=== PATIENT | female | born 2000 | race Caucasian/White ===

== ENCOUNTER 2019-03-22 20:20 | Emergency (ER) | payer SELFPAY ==
[~2019-03-22] VITALS: Ht 149.9 cm; Wt 78.0 kg
[2019-03-22 20:55] VITALS: Ht 149.9 cm; Wt 78.0 kg
[2019-03-22] MEDS ORDERED: SOD CHLORIDE 0.9% 1,000 ML IV STA (23:49)
[2019-03-22] MEDS ORDERED: ONDANSETRON 4 MG INJ IV STA (23:49)
[2019-03-22] MEDS ORDERED: morphine 2 MG INJ IV STA (23:49)
[2019-03-23] MEDS ORDERED: ACET500C5 PO (01:57)
[2019-03-23] MEDS ORDERED: ONDA8TAB14 PO (01:58)
--- NOTE | 2019-03-23 02:00 | ERD ---
ER Documentation Chief Complaint Chief Complaint C/O RLQ PAIN W/ AND VOMITING X3DAYS HPI 18-year-old female presents with right lower quadrant pain and vomiting for the last 2 days. Vomit is nonbilious nonbloody. She has had tactile fevers but no measured temperature. She was referred by primary doctor for evaluation of appendicitis. Last menstrual period was approximate 1 month ago but she is irregular. Denies . Denies vaginal discharge, dysuria, bleeding. ROS All systems reviewed and are negative except as per history of present illness. Medications Home Meds Active Scripts Ondansetron (Ondansetron Odt) 8 Mg Tab.rapdis, 8 MG PO Q6H PRN for NAUSEA AND/OR VOMITING, #8 TAB Prov:KAMLA CHAMBERS MD 03/23/19 Acetaminophen* (Tylophen*) 500 Mg Capsule, 1 CAP PO Q6H PRN for PAIN AND OR ELEVATED TEMP, #20 CAP Prov:KAMLA CHAMBERS MD 03/23/19 Allergies Allergies: Coded Allergies: ibuprofen (Verified Allergy, Unknown, 03/22/19) PMhx/Soc Medical and Surgical Hx: pt denies Medical Hx, pt denies Surgical Hx Hx Alcohol Use: No Hx Substance Use: No Hx Tobacco Use: No Smoking Status: Never smoker FmHx Family History: No diabetes, No coronary disease, No other Physical Exam Vitals Vital Signs Date Temp Pulse Resp B/P (MAP) Pulse Ox O2 O2 Flow FiO2 Time Delivery Rate 03/23/19 97.9 67 18 122/66 98 05:06 (84) 03/22/19 98.7 81 22 111/59 98 20:55 (76) Physical Exam Const: No acute distress Head: Atraumatic Eyes: Normal Conjunctiva ENT: Normal External Ears, Nose and Mouth. Neck: Full range of motion. No meningismus. Resp: Clear to auscultation bilaterally Cardio: Regular rate and rhythm, no murmurs Abd: Soft, minimal tenderness in right lower abdomen without focal rebound and no Cline sign. No masses. No peritoneal signs., non distended. Normal b owel sounds Skin: No petechiae or rashes Back: No midline or flank tenderness Ext: No cyanosis, or edema Neur: Awake and alert Psych: Normal Mood and Affect Result Diagram: 7/2/19 0102 7/2/19 0102 Results 24 hrs Laboratory Tests Test 03/22/19 00:45 03/23/19 00:54 03/23/19 01:02 Urine Color YELLOW Urine Clarity CLOUDY Urine pH 5.0 Urine Specific [place] 1.026 Urine Ketones NEGATIVE mg/dL Urine Nitrite NEGATIVE mg/dL Urine Bilirubin NEGATIVE mg/dL Urine Urobilinogen NEGATIVE mg/dL Urine Leukocyte Esterase NEGATIVE Kaur/ul Urine Microscopic RBC 2 /HPF Urine Microscopic WBC 4 /HPF Urine Squamous Epithelial Cells MODERATE /HPF Urine Bacteria FEW /HPF Urine Mucus FEW /HPF Urine Hemoglobin NEGATIVE mg/dL Urine Glucose NEGATIVE mg/dL Urine Total Protein NEGATIVE mg/dl POC Beta HCG, Qualitative NEGATIVE White Blood Count 7.5 10^3/ul Red Blood Count 4.84 10^6/ul Hemoglobin 12.8 g/dl Hematocrit 40.0 % Mean Corpuscular Volume 82.6 fl Mean Corpuscular Hemoglobin 26.4 pg Mean Corpuscular 32.0 g/dl Hemoglobin Concent Red Cell Distribution Width 13.9 % Platelet Count 381 10^3/UL Mean Platelet Volume 10.8 fl Immature Granulocytes % 0.100 % Neutrophils % 40.6 % Lymphocytes % 48.8 % Monocytes % 6.1 % Eosinophils % 4.0 % Basophils % 0.4 % Nucleated Red Blood Cells % 0.0 /100WBC Immature Granulocytes # 0.010 10^3/ul Neutrophils # 3.0 10^3/ul Lymphocytes # 3.7 10^3/ul Monocytes # 0.5 10^3/ul Eosinophils # 0.3 10^3/ul Basophils # 0.0 10^3/ul Nucleated Red Blood Cells # 0.0 10^3/ul Sodium Level 144 mmol/L Potassium Level 4.1 mmol/L Chloride Level 106 mmol/L Carbon Dioxide Level 26 mmol/L Anion Gap 12 Blood Urea Nitrogen 12 mg/dl Creatinine 0.60 mg/dl Est Glomerular Filtrat > 60 mL/min Rate mL/min Glucose Level 112 mg/dl Calcium Level 9.7 mg/dl Total Bilirubin 0.4 mg/dl Direct Bilirubin 0.00 mg/dl Indirect Bilirubin 0.4 mg/dl Aspartate Amino Transf (AST/SGOT) 62 IU/L Alanine 101 IU/L Aminotransferase (ALT/SGPT) Alkaline Phosphatase 85 IU/L Total Protein 8.3 g/dl Albumin 4.8 g/dl Globulin 3.50 g/dl Albumin/Globulin Ratio 1.37 Lipase 98 U/L Current Medications Medications Dose Sig/Maryjane Start Time Status Last (Trade) Ordered Route PRN Stop Time Admin Dose Reason Admin Sodium 1,000 ml @ Q1H STAT 03/22/19 DC 03/23/19 Chloride 1,000 mls/hr IV 23:49 03/23/19 00:55 00:48 Morphine 2 mg ONCE STAT 03/22/19 DC 03/23/19 Sulfate IV 23:49 03/22/19 00:55 (morphine) 23:50 Ondansetron 4 mg ONCE STAT 03/22/19 DC 03/23/19 HCl (Zofran IV 23:49 03/22/19 00:55 Inj) 23:50 1 mg ONCE STAT 03/23/19 DC Hydromorphone IM 03:42 03/23/19 HCl 03:45 (Dilaudid) 1 mg ONCE STAT 03/23/19 DC 03/23/19 Hydromorphone IV 03:44 03/23/19 03:49 HCl 03:45 (Dilaudid) Procedures/MDM CBC and CMP and urine normal. hCG negative. CT abdomen pelvis shows right adnexal lesion consistent with a dermoid, ultrasound recommended. Ultrasound confirms likely cystic dermoid.. Patient presents with lower abdominal pain and vomiting of uncertain etiology. Patient had a benign abdomen and felt much better on serial exam after observation and treatment. She has no signs of torsion, appendicitis, obstruction, surgical abdomen currently. Final results of radiologic studies signed out to mid-level and supervising ER physician. Review of chart shows she does have a dermoid on the right adnexa which may be the cause of her symptoms. . She will be discharged home with close observation, Tylenol, Zofran, primary care follow-up and further evaluation and treatment of dermoid, and return precautions. She is advised to see a manager staffing and may need authorization from her primary doctor for gynecology. Advised to return for worsening pain, vomiting, fevers, new worsening symptoms. The patient was stable with no new complaints during the ER course. Clinically, there is no current evidence to suggest meningitis, sepsis, acute abdomen, pneum onia, stroke, acute coronary syndrome, pulmonary embolism, aortic dissection or any other emergent condition appearing to require further evaluation or hospitalization. Patient counseled regarding my diagnostic impression and care plan. Prior to discharge all questions answered. Pt agrees with treatment plan and understands strict return precautions. Pt is instructed to follow up with primary care provider within 24-48 hours. Precautionary instructions provided including instructions to return to the ER if not improving or for any worsening or changing symptoms or concerns. Disclaimer: Inadvertent spelling and grammatical errors are likely due to EHR/dictation software use and do not reflect on the overall quality of patient care. Also, please note that the electronic time recorded on this note does not necessarily reflect the actual time of the patient encounter. Departure Diagnosis: Primary Impression: Abdominal pain Abdominal location: right lower quadrant Qualified Codes: R10.31 - Right lower quadrant pain Additional Impression: Dermoid cyst Condition: Stable Patient Instructions: Abdominal Pain Referrals: NO PRIMARY,CARE PHYSICIAN (PCP) Additional Instructions: Examination shows no appendicitis today. Uncertain cause of pain. Recheck for fevers, vomiting, new worsening symptoms with primary care doctor. KAMLA CHAMBERS MD Mar 23, 2019 02:00
[2019-03-23] MEDS ORDERED: HYDROmorphONE 2 MG/ML SYG IM STA (03:42)
[2019-03-23] MEDS ORDERED: HYDROmorphONE 0.5 MG/0.5 ML SYG IV STA (03:44)
[2019-03-23 05:06] VITALS: BP 122/66; PULSE 67; RESP 18
== END 2019-03-23 05:07 | disposition home or self-care (01) ==
LOC: FTE 20:20
DX: C57.4 Malignant neoplasm of uterine adnexa, unspecified (principal); R11.10 Vomiting, unspecified
CPT/HCPCS: 36415; 74176; 76830; 76856; 80053; 81001; 81025; 83690; 85025; 96361; 96374; 96375; 99285; J1170; J2270; J2405; J7030

== ENCOUNTER 2019-04-02 12:13 | Emergency (ER) | payer SELFPAY ==
[~2019-04-02] VITALS: Ht 149.9 cm; Wt 77.1 kg
[~2019-04-02 12:13] MED LIST: ACET500C5 PO; ONDA8TAB14 PO
[2019-04-02 12:54] VITALS: Ht 149.9 cm; Wt 77.1 kg
--- NOTE | 2019-04-02 13:33 | ERD ---
ER Documentation Chief Complaint Chief Complaint Left axillary possible abscess x1week non-draining HPI Patient is a 18 years old female with no known past medical history presenting to the clinic for possible nondraining abscess of left axilla X 1 week. Patient reports that her symptoms started over the small little lump that has slowly gotten bigger and more painful. Currently rates her pain 3 out of 10 that worsens with touch. Patient admits to associated chills but denies fever, night sweats, chest pain, cough, shortness of breath. Patient admits to taking ov [id number] Tylenol without resolution. Patient reports allergy to ibuprofen that gives her hives. ROS All systems reviewed and are negative except as per history of present illness. Medications Home Meds Active Scripts Clindamycin Hcl* (Clindamycin Hcl*) 300 Mg Capsule, 300 MG PO TID for 10 Days, CAP Prov:KARELY FABIAN PA-C 04/02/19 Ondansetron (Ondansetron Odt) 8 Mg Tab.rapdis, 8 MG PO Q6H PRN for NAUSEA AND/OR VOMITING, #8 TAB Prov:KAMLA CHAMBERS MD 03/23/19 Acetaminophen* (Tylophen*) 500 Mg Capsule, 1 CAP PO Q6H PRN for PAIN AND OR ELEVATED TEMP, #20 CAP Prov:KAMLA CHAMBERS MD 03/23/19 Allergies Allergies: Coded Allergies: ibuprofen (Verified Allergy, Unknown, 03/22/19) PMhx/Soc Medical and Surgical Hx: pt denies Medical Hx, pt denies Surgical Hx History of Surgery: No Anesthesia Reaction: No Hx Neurological Disorder: No Hx Respiratory Disorders: No Hx Cardiac Disorders: No Hx Psychiatric Problems: No Hx Miscellaneous Medical Probl: No Hx Alcohol Use: No Hx Substance Use: No Hx Tobacco Use: No Smoking Status: Never smoker FmHx Family History: No diabetes, No coronary disease, No other Physical Exam Vitals Vital Signs Date Temp Pulse Resp B/P (MAP) Pulse Ox O2 O2 Flow FiO2 Time Delivery Rate 04/02/19 99.4 114 20 136/69 98 12:54 (91) Physical Exam Const: No acute distress Head: Atraumatic Eyes: Normal Conjunctiva Resp: Clear to auscultation bilaterally Cardio: Regular rate and rhythm, no murmurs Abd: Soft, non tender, non distended. Normal bowel sounds Skin: Tender nodule in left axillary region without induration or erythema skin perforation. Neur: Awake and alert Psych: Normal Mood and Affect Results 24 hrs Current Medications Medications Dose Sig/Maryjane Start Time Status Last (Trade) Ordered Route PRN Stop Time Admin Dose Reason Admin Ceftriaxone 1 gm ONCE ONCE 04/02/19 04/02/19 Sodium IM 14:00 13:45 (Rocephin) 04/02/19 14:01 Lidocaine 20 ml ONCE ONCE 04/02/19 04/02/19 (Xylocaine SC 14:00 13:44 1% (Mdv) 20 04/02/19 14:01 ml) Procedures/MDM Patient was seen and evaluated for left axillary abscess without complication. Patient was given Rocephin 1 g IM in ED. patient denied I&D stating that she will like to try antibiotic first. No suspicion of sepsis without any signs of cellulitis. Patient is stable and ready for discharge. Patient will be discharged with clindamycin 200 mg for 10 days. Patient was advised to take medication while erect with full glass of water 3 times a day. Continue OTC Tylenol as needed. Prior to leaving ED, patient change her mind requesting that she would like I&D today. Provided performed I&D under sterile technique. 1% lidocaine applied followed by small incision with drainage of pus. Copious irrigation with normal saline followed by iodine packing strip and dressing application applied. Patient was advised to follow-up in 3 days for wound care. Departure Diagnosis: Primary Impression: Abscess Condition: Stable Patient Instructions: Abscess, Incision And Drainage Referrals: [facility] Additional Instructions: Patient advised to return to the ED immediately for new or worsening symptoms. Patient advised to follow up with primary care provider in the next 24-48 hours. Patient verbalized understanding and agrees with treatment plan and course of action. If patient has no primary care they may follow up with [facility] [address] [place] [id number] or [facility] [address] [place] [address] or [facility] [address] [place] [address] KARELY FABIAN PA-C Apr 02, 2019 13:33
[2019-04-02] MEDS ORDERED: CLIN300C10 PO (13:38)
[2019-04-02] MEDS ORDERED: LIDOCAINE 1% (MDV) 20 ML INJ SC ONE ×2 (14:00)
[2019-04-02] MEDS ORDERED: CEFTRIAXONE 1 GM INJ IM ONE (14:00)
== END 2019-04-02 15:43 | disposition home or self-care (01) ==
LOC: E/R 12:13 → FTE 15:43
DX: L02.412 Cutaneous abscess of left axilla (principal)
CPT/HCPCS: 96372; J0696

== ENCOUNTER 2019-04-05 11:06 | Emergency (ER) | payer MEDICAID ==
[~2019-04-05] VITALS: Ht 149.9 cm; Wt 79.0 kg
[~2019-04-05 11:06] MED LIST changes: +CLIN300C10 PO
[2019-04-05 11:10] VITALS: BP 134/72; PULSE 82; RESP 17; Ht 149.9 cm; Wt 79.0 kg
--- NOTE | 2019-04-05 12:11 | ERD ---
ER Documentation Chief Complaint Chief Complaint WOUND CHECK ON LEFT AXILA S/P I&D HPI 18-year-old female, presents to the emergency department, for wound check and incision and drainage of an abscess performed on her left axilla 2 days ago. The patient refers feeling better, no fever, no chills, adequate pain control. ROS All systems reviewed and are negative except as per history of present illness. Medications Home Meds Active Scripts Clindamycin Hcl* (Clindamycin Hcl*) 300 Mg Capsule, 300 MG PO TID for 10 Days, CAP Prov:KARELY FABIAN PA-C 04/02/19 Ondansetron (Ondansetron Odt) 8 Mg Tab.rapdis, 8 MG PO Q6H PRN for NAUSEA AND/OR VOMITING, #8 TAB Prov:KAMLA CHAMBERS MD 03/23/19 Acetaminophen* (Tylophen*) 500 Mg Capsule, 1 CAP PO Q6H PRN for PAIN AND OR ELEVATED TEMP, #20 CAP Prov:KAMLA CHAMBERS MD 03/23/19 Allergies Allergies: Coded Allergies: ibuprofen (Verified Allergy, Unknown, 03/22/19) PMhx/Soc Medical and Surgical Hx: pt denies Medical Hx History of Surgery: No Anesthesia Reaction: No Hx Neurological Disorder: No Hx Respiratory Disorders: No Hx Cardiac Disorders: No Hx Psychiatric Problems: No Hx Miscellaneous Medical Probl: No Hx Alcohol Use: No Hx Substance Use: No Hx Tobacco Use: No Smoking Status: Never smoker FmHx Family History: No diabetes, No coronary disease Physical Exam Vitals Vital Signs Date Temp Pulse Resp B/P (MAP) Pulse Ox O2 O2 Flow FiO2 Time Delivery Rate 04/05/19 98.6 82 17 134/72 98 11:10 (92) Physical Exam Const: No acute distress Head: Atraumatic Eyes: Normal Conjunctiva ENT: Normal External Ears, Nose and Mouth. Neck: Full range of motion. No meningismus. Resp: Clear to auscultation bilaterally Cardio: Regular rate and rhythm, no murmurs Abd: Soft, non tender, non distended. Normal bowel sounds Skin: No petechiae or rashes Back: No midline or flank tenderness Ext: Left axillary area status post I&D, packing in place, wound clean, dry and intact, still mild drainage, significant improvement of induration, tenderness and edema. No cyanosis, or edema Neur: Awake and alert Psych: Normal Mood and Affect Procedures/MDM Status post incision and drainage of an abscess 2 days ago. Adequate pain control, no fever, no chills, good compliance with medications no side effects. The patient was evaluated for infection and neurovascular compromise. The wound was clean and irrigated with normal saline and dressing applied. Patient is stable, with adequate healing process, okay to discharge home, medication adherence reinforced. some side effects of prescribed medications (headache, rash, nausea, vomiting, diarrhea, drowsiness, habituation, bleeding, hypertension, interactions with other medications) were reviewed. The patient was instructed to follow up with the primary care provider in the next 48h. If symptoms persist, worsen or new symptoms develop, then patient should return to the ED immediately. Instructions explained and given directly by me to the patient with acknowledgment and demonstrated understanding. Disclaimer: Inadvertent spelling and grammatical errors are likely due to EHR/dictation software use and do not reflect on the overall quality of patient care. Also, please note that the electronic time recorded on this note does not necessarily reflect the actual time of the patient encounter. Departure Diagnosis: Primary Impression: Encounter for wound re-check Condition: Stable Additional Instructions: Thank you very much for allowing us to participate in your care. Your health and safety is our top priority at [facility]. The evaluation in the emergency department has been done to rule out an acute emergency. Chronic, iid-ztjk-yvxgkzrtldo conditions may have not been evaluated; therefore, you need to follow up with a primary care provider in the next 48h. If symptoms persist, worsen or new symptoms develop, then patient should return to the ED immediately. Call your primary care doctor TOMORROW for an appointment during the next 2-4 days and bring all the information provided. Have prescriptions filled and follow precisely the directions on the label. If the symptoms get worse and your provider is unavailable, return to the Emergency Department immediately. DELISA BARTON MD Apr 05, 2019 12:11
== END 2019-04-05 12:19 | disposition home or self-care (01) ==
LOC: E/R 11:06
DX: Z48.01 Encounter for change or removal of surgical wound dressing (principal)
CPT/HCPCS: 99281

== ENCOUNTER 2019-04-07 11:17 | Emergency (ER) | payer MEDICAID ==
[~2019-04-07] VITALS: Wt 78.2 kg
[2019-04-07 11:18] VITALS: BP 155/68; PULSE 78; RESP 20
--- NOTE | 2019-04-07 12:37 | ERD ---
ER Documentation Chief Complaint Chief Complaint wound check l. axilla HPI This is a 18-year-old female presents to the ED for wound recheck status post abscess incision and drainage on April 02, 2019. Patient had packing that was placed. She has been taking clindamycin. She still has some mild tenderness to the incision site, but denies any significant drainage. She denies any fevers. Denies any new abscesses or wounds. No other complaints. ROS All systems reviewed and are negative except as per history of present illness. Medications Home Meds Active Scripts Clindamycin Hcl* (Clindamycin Hcl*) 300 Mg Capsule, 300 MG PO TID for 10 Days, CAP Prov:KARELY FABIAN PA-C 04/02/19 Ondansetron (Ondansetron Odt) 8 Mg Tab.rapdis, 8 MG PO Q6H PRN for NAUSEA AND/OR VOMITING, #8 TAB Prov:KAMLA CHAMBERS MD 03/23/19 Acetaminophen* (Tylophen*) 500 Mg Capsule, 1 CAP PO Q6H PRN for PAIN AND OR ELEVATED TEMP, #20 CAP Prov:KAMLA CHAMBERS MD 03/23/19 Allergies Allergies: Coded Allergies: ibuprofen (Verified Allergy, Unknown, 03/22/19) PMhx/Soc History of Surgery: No Anesthesia Reaction: No Hx Neurological Disorder: No Hx Respiratory Disorders: No Hx Cardiac Disorders: No Hx Psychiatric Problems: No Hx Miscellaneous Medical Probl: No Hx Alcohol Use: No Hx Substance Use: No Hx Tobacco Use: No Physical Exam Vitals Vital Signs Date Temp Pulse Resp B/P (MAP) Pulse Ox O2 O2 Flow FiO2 Time Delivery Rate 04/07/19 98.5 78 20 155/68 98 11:18 (97) Physical Exam Const: No acute distress Head: Atraumatic Eyes: Normal Conjunctiva ENT: Normal External Ears, Nose and Mouth. Skin: + Incision to the left axilla with packing in place, packing drenched in blood w/o significant drainage, mild tenderness to palpation around the incision site, no induration or fluctuance. No streaking. No warmth. Back: No midline or flank tenderness Ext: No cyanosis, or edema Neur: Awake and alert Psych: Normal Mood and Affect Procedures/MDM PROCEDURES: Packing removed, no significant drainage. MEDICAL DECISION MAKIN-year-old female presents for wound recheck status post incision and drainage left axilla 5 days ago. Wound is healing well. No signs of ischemic necrosis, reforming abscess, cellulitis or other deep space infection at this time. Packing was removed, no further drainage was expressed with manipulation. Recommend gentle cleaning with mild soap and water. Pt is stable for outpatient follow up and management. Recommend she continue with clindamycin at home. Strict return precautions given. PRESCRIPTIONS: None, patient has clindamycin at home. SPECIALIST FOLLOW UP RECOMMENDED: None Patient has been advised to follow up with primary care in 1-2 days. Departure Diagnosis: Primary Impression: Encounter for wound re-check Condition: Stable Patient Instructions: Wound Care Referrals: [facility] YOU HAVE RECEIVED A MEDICAL SCREENING EXAM AND THE RESULTS INDICATE THAT YOU DO NOT HAVE A CONDITION THAT REQUIRES URGENT TREATMENT IN THE EMERGENCY DEPARTMENT. FURTHER EVALUATION AND TREATMENT OF YOUR CONDITION CAN WAIT UNTIL YOU ARE SEEN IN YOUR DOCTORS OFFICE WITHIN THE NEXT 1-2 DAYS. IT IS YOUR RESPONSIBILITY TO MAKE AN APPOINTMENT FOR FOLOW-UP CARE. IF YOU HAVE A PRIMARY DOCTOR --you should call your primary doctor and schedule an appointment IF YOU DO NOT HAVE A PRIMARY DOCTOR YOU CAN CALL OUR PHYSICIAN REFERRAL HOTLINE AT IF YOU CAN NOT AFFORD TO SEE A PHYSICIAN YOU CAN CHOSE FROM THE FOLLOWING [facility] [address] [facility]. [facility] [address] [facility]. [facility] [address] [facility] [facility] [address] [facility]. [facility] [address] [facility]. [facility]. [address] [facility]. [facility] YOU HAVE RECEIVED A MEDICAL SCREENING EXAM AND THE RESULTS INDICATE THAT YOU DO NOT HAVE A CONDITION THAT REQUIRES URGENT TREATMENT IN THE EMERGENCY DEPARTMENT. FURTHER EVALUATION AND TREATMENT OF YOUR CONDITION CAN WAIT UNTIL YOU ARE SEEN IN YOUR DOCTORS OFFICE WITHIN THE NEXT 1-2 DAYS. IT IS YOUR RESPONSIBILITY TO MAKE AN APPOINTMENT FOR FOLOW-UP CARE. IF YOU HAVE A PRIMARY DOCTOR --you should call your primary doctor and schedule and appointment IF YOU DO NOT HAVE A PRIMARY DOCTOR YOU CAN CALL OUR PHYSICIAN REFERRAL HOTLINE AT . IF YOU CAN NOT AFFORD TO SEE A PHYSICIAN YOU CAN CHOSE FROM THE FOLLOWING [facility] INSTITUTIONS: [facility] [address] [place] [address] [facility] [address] [place] [address] [facility] [address] [place] [address] Additional Instructions: I recommend warm water soaks throughout several times a day for the next 7 to 10 days. You can keep the wound open. You can return here for any fevers, chills, increasing pain, increasing discharge or any other symptoms. Initiate antibiotic biotics. Return here for any new or worsening symptoms. VERONICA CRUZ PA-C Apr 07, 2019 12:37
== END 2019-04-07 12:30 | disposition home or self-care (01) ==
LOC: E/R 11:17
DX: Z48.01 Encounter for change or removal of surgical wound dressing (principal)
CPT/HCPCS: 99281